=== PATIENT | female | born 1930 | race Caucasian/White ===

== ENCOUNTER 2017-02-24 13:34 | Inpatient (IN) ==
[2017-02-24] MEDS ORDERED: PANTOPRAZOLE 40 MG VIAL IV STA (13:59)
[2017-02-24] MEDS ORDERED: ONDANSETRON 4 MG/2 ML VIAL IV STA (13:59)
[2017-02-24] MEDS ORDERED: SODIUM CHLORIDE 0.9% 500 ML IV STA (13:59)
--- NOTE | 2017-02-24 14:03 | Emergency Department Note ---
Adam Edwards Rolonda, am scribing for, and in the presence of, Arben Campbell MD 13: 59. Shannan Edwards James D, MD, personally performed the services described in this documentation, ascribed by Melba Medina in my presence, and it is both accurate and complete 402 . Arrival - Arrival Chief Complaint: GI Bleed/Rectal ED Nursing Triage Note: pt has a lower gi bleed. dark red in color Mode of Arrival: Stretcher Limitations: No Limitations Source: Patient, Family (niece), Old Records Reviewed, RN Notes Reviewed - History of Present Illness HPI Narrative: Pt is an 87 y/o female who presents to the ED via EMS with c/o lower GI bleed with an onset of hours. Pt has a PMHx of HTN. She states that she feels "really sick", had weakness and could not move. 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 Pt denies having abdomen pain and vomiting but confirms nausea and that she is on blood thinners. PT states that she has had a little amount of blood in the stool. No other complaint/pain in ED. Onset (ago): hour(s) Consistency: constant Severity: moderate Severity scale (1-10): 4 Allergies/Adverse Reactions: Allergies Allergy/AdvReac Type Severity Reaction Status Date / Time No Known Allergies Allergy Verified 09/25/16 12:32 Home Medications: Home Medications Medication Instructions Recorded Confirmed Type Aspirin EC Tab 81 mg PO BEDTIME 09/26/16 02/24/17 History Benzonatate 100 mg PO TID PRN 09/26/16 02/24/17 History Butalbital/Acet/Caff 50-325-40 1 tablet PO Q4H PRN 09/26/16 02/24/17 History [Fioricet 50-325-40 mg Tablet] Gabapentin 100 mg PO TID 09/26/16 02/24/17 History Ipratropium/Albuterol Inhaler 1 puff INH QID 09/26/16 02/24/17 History [Combivent Respimat Inhaler] Isosorbide Mononitrate [Isosorbide 60 mg PO DAILY 09/26/16 02/24/17 History Mononitrate ER] Metoprolol Tartrate 12.5 mg PO BID 09/26/16 02/24/17 History Montelukast Tab [Singulair Tab] 10 mg PO BEDTIME 09/26/16 02/24/17 History [place]-3 Fatty Acids [Fish Oil] 300 mg PO DAILY 09/26/16 02/24/17 History Vit B Cmplx No3/FA/C/Biot/Zinc 1 each PO DAILY 09/26/16 02/24/17 History [Nephplex Rx Tablet] Colestipol [Colestid] 2 gm PO DAILY #30 tablet 10/01/16 02/24/17 Rx Nitroglycerin Sl Tab [Nitrostat] 0.4 mg SL Q5M PRN 02/24/17 02/24/17 History Potassium Chloride Cap/Tab [K Dur] 20 meq PO TID 02/24/17 02/24/17 History Pantoprazole Tab [Protonix Tab] 40 mg PO BID #30 tablet 02/27/17 02/24/17 Rx Warfarin Sodium [Jantoven] 5 mg PO DAILY #0 02/27/17 02/24/17 Rx Review of System - Review of System 12 point system: reviewed and no additional remarkable complaints except as stated - Review of System Constitutional: Present: weakness. Absent: chills Eyes: Absent: discharge Head/Ears/Nose/Throat: Absent: earache Respiratory: Absent: cough Cardiovascular: Absent: chest pain Gastrointestinal: Present: nausea. Absent: abdominal pain, vomiting Genitourinary female: Present: other (lower GI bleed; "dark red blood"). Absent : abnormal menses Musculoskeletal: Absent: arm pain Skin: Absent: rash Neurological: Absent: headache Psychiatric: Absent: anxiety Endocrine: Absent: cold intolerance Hematological/Lymphatic: Absent: easy bleeding Allergic/Immunologic: Absent: facial swelling Medical,Surgical,& Family Hx - Medical History Cardio: History of: Cardiac Dysrhythmia (Long-standing atrial fibrillation approximately 8 years), CHF (Preserved ejection fraction and probable diastolic dysfunction), Hypertension No history of: MT, Pacemaker, PVD Psychological: No history of: Anxiety Disorders, ADHD, Behavior Problems, Bipolar Disorder, Depression, Previous Suicide Attempt, Psychiatric/Substance Abuse Tx, Schizophrenia, Violent Behavior, Psychiatric Problems Neurology: No history of: Seizures, TIA Respiratory: History of: COPD No history of: Obstructive Sleep Apnea Renal: No history of: Renal Failure Gastrointestinal: History of: GERD Hematology: No history of: Anemia - Surgical History Cardiac Surgeries: Sugical HX of: Cardiac Catheterization Thoracic Surgeries: Patient denies;: Organ Transplant, Lobectomy Neurologic Surgeries: Patient denies: Neurologic Surgery Abdominal Surgeries: Surgical HX of: Abdominal Surgery, Appendectomy, Cholecystectomy Reproductive Surgeries: Surgical HX of;: Hysterectomy Patient denies;: Gynecologic Surgery - Family History Family History: Reports;: Family Heart Disease - Social History Smoking Status: Never smoker Frequency of Alcohol Use: None Type of Drug Use: None Exam Vital Signs: Vital Signs Temperature 98.4 F 02/27/17 04:00 Pulse Rate 84 02/27/17 07:35 Respiratory Rate 16 02/27/17 07:35 Blood Pressure 143/67 02/27/17 04:00 O2 Sat by Pulse Oximetry 99 02/27/17 07:35 GENERAL: This is a chronically ill-appearing pale white female in no apparent distress. VITAL SIGNS: Reviewed HEENT: Head is atraumatic and normocephalic. Pupils are equal round react to light. Extraocular movements are intact. Oropharynx is benign with moist mucous membranes. NECK: Neck is soft and supple without tenderness. There are no masses. There is no lymphadenopathy. LUNGS: Lungs are clear to auscultation. Chest rises symmetrically. There is no chest wall tenderness. CV: Irregularly irregular without murmurs rubs or gallops. ABDOMEN: Abdomen is soft, nontender to palpation. There are no abdominal abnormal masses palpated. There is no organomegaly. Bowel sounds are present and active. SKIN: Skin is warm and dry. No rash. EXTREMITIES: Patient has full range of motion without tenderness. There is no pedal edema. NEUROLOGIC: Awake alert and oriented 4. Cranial nerves II through XII are grossly intact. Motor is 5 over 5 in all extremities bilaterally. Results - Labs CBC & BMP: 02/27/17 05:18 02/26/17 07:37 Lab Results: I have reviewed the patients labs Labs: Laboratory Tests 02/24/17 02/24/17 02/24/17 14:48 14:48 14:48 WBC 7.2 Hgb 10.6 L Hct 32.1 L Plt Count 117 L INR 1.6 Sodium 142 Potassium 4.9 Chloride 109 H Carbon Dioxide 26 Anion Gap 11.9 BUN 44 H Creatinine 0.90 Glucose 95 Only the labs of 02/24/2017 are to be considered for the purposes of this note. Labs from any other date have been entered automatically by the electronic medical record. Disposition Clinical Impression: Acute GI bleeding Case discussed with: patient, patient's family Disposition: Still a Patient New Prescriptions: Rx's Medication Instructions Recorded Pantoprazole Tab [Protonix Tab] 40 mg PO BID #30 tablet 02/27/17 Warfarin Sodium [Jantoven] 5 mg PO DAILY #0 02/27/17
--- NOTE | 2017-02-24 14:28 | EKG Report ---
Stationary ECG Study [facility] ER Test Date: 02/24/2017 2:26:52 PM Pat Name: LISHA WILLIAMSON Department: Room: Gender: F [employer] Supervisor: : 1930 Requested by: Arben Lam Order Number: [id number] Reading MD: GANESH TOMLIN Intervals [place] Rate: 84 P: 999 AK: 0 QRS: -5 QRSD: 84 T: -4 QT: 362 QTc: 403 Interpretive Statements ATRIAL FIBRILLATION VOLTAGE CRITERIA FOR LVH INFERIOR MYOCARDIAL INFARCTION, PROBABLY OLD Electronically Signed On 02-24-17 15:54:07 CDT by GANESH TOMLIN [email or web address]
[2017-02-24] MEDS ORDERED: PANTOPRAZOLE 40 MG VIAL IV ONE (14:39)
[2017-02-24] MEDS ORDERED: ONDANSETRON 4 MG/2 ML VIAL ONE (14:40)
[2017-02-24 15:08] LABS: Basophils % 0.1 % (0.0-0.8); Eosinophils % 0.6 % (0.00-10.9); Hematocrit 32.1 VOL% (35.7-47.0); Hemoglobin 10.6 GM/DL (12.0-16.0); Immature Granulocytes % 0.6 %; Immature Granulocytes Absolute 0.04 #; Lymphocytes # 1.1 10*3/uL (1.4-4.0); Lymphocytes % 15.6 % (21.3-54.2); Mean Corpuscular Hemoglobin 34 PG (27-34); Mean Corpuscular Volume 102.2 FL (87-102); Mean Platelet Volume 13.8 FL (9.6-12.0); Monocytes # 0.4 10*3/uL (0.11-0.8); Neutrophils # 5.5 10*3/uL (1.4-7.4); Neutrophils % 77.1 % (38.7-73.9); Platelet Count 117 T/CUMM (130-400); Red Blood Count 3.14 MC/CUMM (3.8-5.5); Red Cell Distribution Width 14.5 % (9.3-17.3); White Blood Count 7.2 T/CUMM (4-12)
[2017-02-24 15:13] LABS: INR 1.6; PT Patient Result 17.8 SECS; Partial Thromboplastin Time 29.2 SECS (0-40)
[2017-02-24 15:30] LABS: Albumin 3.4 G/DL (3.4-5.0); Bilirubin,Total 0.4 MG/DL (0.2-1.0); Calcium 9.9 MG/DL (8.5-10.1); Osmolality,Calculated 293.1 MOS/KG (273-304); Potassium 4.9 MMOL/L (3.5-5.1); Total Protein 6.1 G/DL (6.4-8.3)
--- NOTE | 2017-02-24 16:21 | Hospitalist History & Physical ---
<Maddie Honeycutt - Last Filed: 02/24/17 16:12> Assessment and Plan - Time spent with patient Time spent with patient: Greater than 30 minutes (1) Acute GI bleeding Status: Acute Assessment and plan: Patient reports dark red stool this a.m. Admit to Hospital Services. Start IV fluids. Repeat labs in a.m. Consult GI. Will discuss with Dr Selby for further recommendations. Current Visit: Yes (2) Chronic atrial fibrillation Status: Chronic Assessment and plan: Will continue to monitor INR and PT. Patient is currently on Coumadin for chronic AFib. Current Visit: No History of Present Illness Chief complaint: GI bleed History of present illness: Ms. Mayfield is a 87 year old white female with PMHx of AFib; CHF; Hypertension; COPD; presents to the ED via EMS for further evaluation of 2 very dark loose bowel movements this a.m. She reported some nausea and feeling "really weak" with a near syncope episode. She reports taking coumadin for chronic AFib. Patient denies shortness of breath, dizziness, fever, chills, vomiting. In the ED: EKG Atrial fibrillation with rate 84 irregular. LABS: H &H 10.6 & 32.1; INR 1.6; PT 17.8; PTT 29.2; Electrolytes within normal range; BUN 44; creatinine 0.90. Cardiology: Dr Lozano Pulmonary: Dr Cano GI: Dr Lamar After discussion with Dr Campbell in the ED and Dr Selby with Hospital Services, it was agreed to admit patient for observation and further evaluation. Home medications will be reviewed and reconciliation to follow. Home Medications Medication Instructions Recorded Confirmed Type Aspirin EC Tab 81 mg PO BEDTIME 09/26/16 09/26/16 History Benzonatate 100 mg PO TID 09/26/16 09/26/16 History Butalbital/Acet/Caff 50-325-40 1 tablet PO Q4H PRN 09/26/16 09/26/16 History [Fioricet 50-325-40 mg Tablet] Gabapentin 100 mg PO TID 09/26/16 09/26/16 History Ipratropium/Albuterol Inhaler 1 puff INH QID 09/26/16 09/26/16 History [Combivent Respimat Inhaler] Isosorbide Mononitrate [Isosorbide 60 mg PO DAILY 09/26/16 09/26/16 History Mononitrate ER] Metoprolol Tartrate 12.5 mg PO BID 09/26/16 09/26/16 History Montelukast Tab [Singulair Tab] 10 mg PO BEDTIME 09/26/16 09/26/16 History [place]-3 Fatty Acids [Fish Oil] 300 mg PO DAILY 09/26/16 09/26/16 History Vit B Cmplx No3/FA/C/Biot/Zinc 1 each PO DAILY 09/26/16 09/26/16 History [Nephplex Rx Tablet] Colestipol [Colestid] 2 gm PO DAILY #30 tablet 10/01/16 Rx Pantoprazole Tab [Protonix Tab] 40 mg PO DAILY #30 tablet 10/01/16 Rx Potassium Chloride Cap/Tab [K Dur] 20 meq PO DAILY #30 tablet 10/01/16 Rx Warfarin Sodium [Jantoven] 5 mg PO DAILY #30 tablet 10/01/16 Rx cephALEXin [Keflex] 500 mg PO Q8H #21 capsule 10/01/16 Rx Allergies Allergy/AdvReac Type Severity Reaction Status Date / Time No Known Allergies Allergy Verified 09/25/16 12:32 Medical,Surgical,& Family Hx - Medical History Cardio: History of: Cardiac Dysrhythmia (Long-standing atrial fibrillation approximately 8 years), CHF (Preserved ejection fraction and probable diastolic dysfunction), Hypertension No history of: [place], Pacemaker, PVD Psychological: No history of: Anxiety Disorders, ADHD, Behavior Problems, Bipolar Disorder, Depression, Previous Suicide Attempt, Psychiatric/Substance Abuse Tx, Schizophrenia, Violent Behavior, Psychiatric Problems Neurology: No history of: Seizures, TIA Respiratory: History of: COPD No history of: Obstructive Sleep Apnea Renal: No history of: Renal Failure Gastrointestinal: History of: GERD Hematology: No history of: Anemia - Surgical History Cardiac Surgeries: Sugical HX of: Cardiac Catheterization Thoracic Surgeries: Patient denies;: Organ Transplant, Lobectomy Neurologic Surgeries: Patient denies: Neurologic Surgery Abdominal Surgeries: Surgical HX of: Abdominal Surgery, Appendectomy, Cholecystectomy Reproductive Surgeries: Surgical HX of;: Hysterectomy Patient denies;: Gynecologic Surgery - Family History Family History: Reports;: Family Heart Disease - Social History Smoking Status: Never smoker Frequency of Alcohol Use: None Type of Drug Use: None Lives With:: grandson lives with her Functional capacity: uses cane/walker Review of systems: ROS completed and pertinent positives and negatives in the HPI. Exam - Constitutional Vitals: Period Temp Pulse Resp BP Sys/Sánchez Pulse Ox Last 24 Hr 97.1 F-97.1 F 94-94 18-18 145-145/72-72 96-96 General appearance: normal weight - Head Head exam: Present: normal inspection - Eye Eye exam: Present: EOMI Pupils: Present: JIM - Neck Neck exam: Present: normal inspection. Absent: thyromegaly - Respiratory Respiratory exam: Present: clear to auscultation bilaterally. Absent: rhonchi, stridor, wheezes - Cardiovascular Cardiovascular exam: Present: irregular rhythm (chronic Afib) - GI/Abdominal GI/Abdominal exam: Present: normal bowel sounds, soft. Absent: tenderness, rebound - Extremities Exam Extremities exam: Present: normal inspection, full ROM. Absent: edema - Neurological Exam Neurological exam: Present: alert, oriented X3 - Psychiatric Psychiatric exam: Present: normal affect, normal mood. Absent: agitated, anxious - Skin Skin exam: Present: normal color, warm, dry Results - Labs CBC & BMP: 02/24/17 14:48 02/24/17 14:48 Lab Results: I have reviewed the past 24 hour labs - EKG EKG results: interpreted by CARL[place] <Jennifer Selby - Last Filed: 02/24/17 17:33> History of Present Illness History of present illness: Patient seen and examined independently of BINDERY WORKER Honeycutt, agree with history, assessment and plan as documented. 87 y/o WF on coumadin for afib presents s/p syncopal episode with associated bloody diarrhea. Her seo executive reports that this has never occurred before. Will admit to the ICU for today for close monitoring. She is currently hemodynamically stable. Monitor H/H, IV protonix. Will consult Dr. Lamar. Exam - Constitutional Vitals: Period Temp Pulse Resp BP Sys/Sánchez Pulse Ox Last 24 Hr 97.1 F-97.1 F 94-94 18-18 145-145/72-72 96-96 Results - Labs CBC & BMP: 02/24/17 14:48 02/24/17 14:48
[2017-02-24 16:29] LABS: Macrocytosis Slight; Platelet Estimate Decreased
[2017-02-24] MEDS: SODIUM CHLORIDE 0.9% 1,000 ML IV SCH (18:36)
[2017-02-24 18:46] LABS: Hematocrit 28.3 VOL% (35.7-47.0); Hemoglobin 9.3 GM/DL (12.0-16.0)
[2017-02-24] MEDS: BUTALBITAL/ACETAMIN/CAFFEINE 50-325-40 MG TABLET PO PRN (20:36)
[2017-02-24] MEDS: ALBUTEROL/IPRATROPIUM 3 ML NEB RESP TX SCH (21:20)
[2017-02-25 01:56] LABS: INR 1.9; PT Patient Result 20.7 SECS
[2017-02-25] MEDS: SODIUM CHLORIDE 0.9% 1,000 ML IV SCH ×2 (02:16→09:07)
[2017-02-25 02:24] LABS: Basophils % 0.3 % (0.0-0.8); Eosinophils # 0.1 10*3/uL (0.0-0.87); Eosinophils % 1.1 % (0.00-10.9); Hematocrit 26.1 VOL% (35.7-47.0); Hemoglobin 8.5 GM/DL (12.0-16.0); Immature Granulocytes % 0.4 %; Immature Granulocytes Absolute 0.03 #; Lymphocytes # 1.8 10*3/uL (1.4-4.0); Lymphocytes % 25.3 % (21.3-54.2); Mean Corpuscular HGB Conc 32.6 GM/DL (32-36); Mean Corpuscular Hemoglobin 34 PG (27-34); Mean Corpuscular Volume 103.6 FL (87-102); Mean Platelet Volume 13.4 FL (9.6-12.0); Monocytes # 0.6 10*3/uL (0.11-0.8); Neutrophils # 4.5 10*3/uL (1.4-7.4); Neutrophils % 63.9 % (38.7-73.9); Platelet Count 95 T/CUMM (130-400); Red Blood Count 2.52 MC/CUMM (3.8-5.5); Red Cell Distribution Width 14.3 % (9.3-17.3)
[2017-02-25 04:13] LABS: Band Neutrophils 5 % (0-10); Eosinophils 1 % (0-10); Lymphocytes 24 % (20-55); Metamyelocytes 1 %; Myelocytes 3 %; Segmented Neutrophils 66 % (50-85); Total Cells Counted 100
[2017-02-25 04:14] LABS: Anisocytosis 1+; Platelet Estimate Decreased; Tear Drop Cells Few
[2017-02-25] MEDS: ALBUTEROL/IPRATROPIUM 3 ML NEB RESP TX SCH ×4 (07:00→19:07)
--- NOTE | 2017-02-25 08:58 | Gastrointestinal Consult Note ---
Assessment and Plan (1) Acute GI bleeding Status: Acute Assessment and plan: The patient has maroon stools which could indicate lower GI bleeding versus upper GI bleeding, we will plan on looking in the upper GI tract as I did not see any source for bleeding during her last colonoscopy done back in September 2016. We will be checking a tagged red blood cell scan to see if she is actively bleeding and if this is a colonic source will cancel upper endoscopy. If the bleeding scan is negative for proceed with upper endoscopy to look for potential upper GI source given the patient's aspirin intake. She is also on Coumadin and I am going to partially reverse this and hopefully this will hold the continued decrease in blood counts. She is parameters written to transfuse at or below 24%. I suspect she will need a transfusion while she is here. It is appropriate to watch her in the CCU. Clear liquid diet today in case she becomes very hypotensive. Current Visit: Yes (2) Anemia, posthemorrhagic, acute Status: Acute Assessment and plan: Continue following patient's hematocrit. Current Visit: No (3) Personal history of colonic polyps Status: Acute Assessment and plan: Repeat colonoscopy in 3 years. If the patient is having a diverticular bleed as seen on tagged red blood cell scan we will likely simply observe after correcting her vitamin K deficiency. We know that she does not have cancer. Current Visit: Yes History of Present Illness Chief complaint: Maroon stools, with hematocrit dropped from 32.1% to 26.1% History of present illness: Ms. Mayfield is a 87 year old female who is well-known to me from her previous hospitalization when she was noted to have an abnormal weight loss some 40 pounds change in bowel habits with diarrhea 10-20 times per day. Colonoscopy took place at that time on 09/25/16 which demonstrated no evidence of Crohn's disease would precipitate, collagenous colitis, ischemic changes malignancy but did show a superficial chronic inflammation most consistent with self-limited colitis. 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 The patient was in a state of usual health up until this morning when she presented with some dark red stools. All medications to include aspirin as well as warfarin and the patient does take pantoprazole. Given these dark stools and a decrease in her hematocrit from 32% to 26% on warfarin (for long-standing atrial fibrillation with preserved ejection fraction) we will obtain a bleeding scan to look for immediate blood loss amenable to arteriography and embolization as well as performing upper endoscopy tomorrow morning to look for a acute ulcer perhaps caused by the aspirin that she is on. She is not complaining of abdominal pain she would like to leave the hospital right now. She has had some nausea, but really has no abdominal pain, her diarrhea had gone away in the interim and her weight has stabilized. Home Medications Medication Instructions Recorded Confirmed Type Aspirin EC Tab 81 mg PO BEDTIME 09/26/16 02/24/17 History Benzonatate 100 mg PO TID PRN 09/26/16 02/24/17 History Butalbital/Acet/Caff 50-325-40 1 tablet PO Q4H PRN 09/26/16 02/24/17 History [Fioricet 50-325-40 mg Tablet] Gabapentin 100 mg PO TID 09/26/16 02/24/17 History Ipratropium/Albuterol Inhaler 1 puff INH QID 09/26/16 02/24/17 History [Combivent Respimat Inhaler] Isosorbide Mononitrate [Isosorbide 60 mg PO DAILY 09/26/16 02/24/17 History Mononitrate ER] Metoprolol Tartrate 12.5 mg PO BID 09/26/16 02/24/17 History Montelukast Tab [Singulair Tab] 10 mg PO BEDTIME 09/26/16 02/24/17 History [place]-3 Fatty Acids [Fish Oil] 300 mg PO DAILY 09/26/16 02/24/17 History Vit B Cmplx No3/FA/C/Biot/Zinc 1 each PO DAILY 09/26/16 02/24/17 History [Nephplex Rx Tablet] Colestipol [Colestid] 2 gm PO DAILY #30 tablet 10/01/16 02/24/17 Rx Pantoprazole Tab [Protonix Tab] 40 mg PO DAILY #30 tablet 10/01/16 02/24/17 Rx Nitroglycerin Sl Tab [Nitrostat] 0.4 mg SL Q5M PRN 02/24/17 02/24/17 History Potassium Chloride Cap/Tab [K Dur] 20 meq PO TID 02/24/17 02/24/17 History Warfarin Sodium [Jantoven] 7.5 mg PO DAILY 02/24/17 02/24/17 History Allergies Allergy/AdvReac Type Severity Reaction Status Date / Time No Known Allergies Allergy Verified 09/25/16 12:32 Medical,Surgical,& Family Hx - Medical History Cardio: History of: Cardiac Dysrhythmia (Long-standing atrial fibrillation approximately 8 years), CHF (Preserved ejection fraction and probable diastolic dysfunction), Hypertension No history of: MD, Pacemaker, PVD Psychological: No history of: Anxiety Disorders, ADHD, Behavior Problems, Bipolar Disorder, Depression, Previous Suicide Attempt, Psychiatric/Substance Abuse Tx, Schizophrenia, Violent Behavior, Psychiatric Problems Neurology: No history of: Seizures, TIA Respiratory: History of: COPD No history of: Obstructive Sleep Apnea Renal: No history of: Renal Failure Gastrointestinal: History of: GERD Hematology: No history of: Anemia - Surgical History Cardiac Surgeries: Sugical HX of: Cardiac Catheterization Thoracic Surgeries: Patient denies;: Organ Transplant, Lobectomy Neurologic Surgeries: Patient denies: Neurologic Surgery Abdominal Surgeries: Surgical HX of: Abdominal Surgery, Appendectomy, Cholecystectomy Reproductive Surgeries: Surgical HX of;: Hysterectomy Patient denies;: Gynecologic Surgery - Family History Family History: Reports;: Family Heart Disease - Social History Smoking Status: Never smoker Frequency of Alcohol Use: None Type of Drug Use: None ROS unobtainable: due to dementia Exam - Constitutional Vitals: Period Temp Pulse Resp BP Sys/Sánchez Pulse Ox Last 24 Hr 97.1 F-97.5 F 72-110 13-21 86-195/46-118 90-100 Exam: Constitutional: Well-developed, well-nourished, alert but moderately demented, and in no acute distress Head and face: Head: Normocephalic atraumatic Eyes: Conjunctiva without injection, no gross scleral icterus, pupils equal and round bilaterally, bilateral ocular implants noted Ears: Intact to conversation in both ears Nose: External appearance is normal, nares patent Mouth: Oral mucous membranes moist without erythema, patient is edentulous Neck: Normal appearance, no masses or tenderness, trachea midline Thyroid: Gland midline and appropriate size for age Respiratory: Normal respiratory effort, clear to auscultation without wheezes, rhonchi or rales Cardiovascular: Regular rate and rhythm, normal S1, S2, the exam is without rubs, murmurs or gallops. Gastrointestinal: Nontender to palpation, normal active bowel sounds, tone normal without rigidity or guarding, no masses present, no hepatomegaly, no spleen tip felt. Rectal exam shows maroon stools, decreased tone Lymphatic: Neck without adenopathy, axilla without lymphadenopathy present Musculoskeletal: Right and left lower extremities without evidence of edema Skin and subcutaneous tissue: No rashes or ulcerations noted, normal skin turgor, digits and nails without clubbing/cyanosis/deformities. Neurologic: The patient is grossly oriented to person place and time, cranial nerves show tongue movements are normal with normal tongue extrusion midline, light touch sensation is intact. Psychiatric: No hallucinations or delusions are present, does not appear depressed, moderately demented Results - Labs CBC & BMP: 02/25/17 02:18 02/24/17 14:48
[2017-02-25] MEDS ORDERED: PANTOPRAZOLE 40 MG VIAL IV SCH (09:00)
[2017-02-25] MEDS ORDERED: PHYTONADIONE 10 MG/1 ML AMP SUBCUT ONE (09:07)
[2017-02-25] MEDS: PANTOPRAZOLE 40 MG VIAL IV SCH ×2 (09:07→20:30)
[2017-02-25] MEDS ORDERED: FUROSEMIDE 20 MG/2 ML VIAL IV PRN (09:09)
[2017-02-25] MEDS ORDERED: SODIUM CHLORIDE 0.9% 250 ML IV PRN ×2 (09:09→19:12)
[2017-02-25 09:15] LABS: Hematocrit 26.5 VOL% (35.7-47.0); Hemoglobin 8.7 GM/DL (12.0-16.0)
[2017-02-25] MEDS: ISOSORBIDE MONONITRATE 60 MG TABLET PO SCH (11:36)
[2017-02-25] MEDS: METOPROLOL TARTRATE 25 MG TABLET PO SCH ×2 (11:37→20:29)
--- NOTE | 2017-02-25 11:38 | Nuclear Medicine Report ---
Nuclear medicine, GI bleeding study. Indication: Anemia, bloody stools. Following the intravenous administration of 20 mCi technetium 99m PYP labeled blood cells, imaging was performed over the abdomen in the blood flow stage with delayed imaging performed over the abdomen for a time frame of one hour. Normal physiologic activity. No findings to suggest active GI bleeding. PROCEDURE INTERPRETED AT [facility] DEPARTMENT OF RADIOLOGY Final Report Signed by: Dr. Marija Umana
[2017-02-25] MEDS: BUTALBITAL/ACETAMIN/CAFFEINE 50-325-40 MG TABLET PO PRN ×2 (11:47→18:38)
[2017-02-25 12:29] LABS: Hematocrit 25.7 VOL% (35.7-47.0); Hemoglobin 8.4 GM/DL (12.0-16.0)
--- NOTE | 2017-02-25 13:38 | Hospitalist Progress Note ---
Assessment and Plan (1) Acute GI bleeding Status: Acute Assessment and plan: 1)acute GI bleed- bleeding scan showed nothing to suggest GI bleeding at this time. Anticipate EGD in am. monitor H&H. On IV protonix. 2)chronic afib- INR 1.9. vitamin K ordered by Dr Lamar, coumadin held. Rate ok on metoprolol. 3)transfer to floor. Current Visit: Yes (2) Chronic atrial fibrillation Status: Chronic Current Visit: No (3) GERD (gastroesophageal reflux disease) Status: Chronic Current Visit: No Qualifiers: Esophagitis presence: without esophagitis Qualified Code(s): K21.9 - Gastro -esophageal reflux disease without esophagitis (4) Chronic anticoagulation Status: Chronic Current Visit: No (5) Diarrhea Status: Acute Current Visit: No (6) Abnormal weight loss Status: Acute Current Visit: No Hospitalist: Subjective Interval history: Mrs Mayfield is doing well today. She denies pain or vomiting. No more BM or blood from rectum since yesterday morning. She is a little bit hungry. She had Cscope last Spring so Dr Lamar will begin with EGD tomorrow morning. Her BP has been stable overnight. Her hgb is down to 8 from 10.6 on admission. Bleeding scan this morning. Exam - Constitutional Vitals: Period Temp Pulse Resp BP Sys/Sánchez Pulse Ox Last 24 Hr 97.1 F-99.1 F 72-110 13-33 86-195/46-118 90-100 General appearance: no acute distress, over weight - Eye Eye exam: Present: EOMI. Absent: scleral icterus - Respiratory Respiratory exam: Present: clear to auscultation bilaterally - Cardiovascular Cardiovascular exam: Present: irregular rhythm - GI/Abdominal GI/Abdominal exam: Present: normal bowel sounds, soft. Absent: tenderness - Extremities Exam Extremities exam: Absent: edema - Neurological Exam Neurological exam: Present: alert, oriented X3 - Skin Skin exam: Present: warm, dry Results - Labs CBC & BMP: 02/25/17 11:50 02/24/17 14:48 Lab Results: I have reviewed the past 24 hour labs
[2017-02-25] MEDS: GABAPENTIN 100 MG CAPSULE PO SCH ×2 (15:40→20:30)
[2017-02-25 18:46] LABS: Hematocrit 22.5 VOL% (35.7-47.0); Hemoglobin 7.4 GM/DL (12.0-16.0)
[2017-02-25] MEDS ORDERED: FUROSEMIDE 20 MG/2 ML VIAL IV ONE (19:13)
[2017-02-25] MEDS: MONTELUKAST 10 MG TABLET PO SCH (20:30)
[2017-02-26] MEDS ORDERED: FUROSEMIDE 20 MG/2 ML VIAL IV ONE (01:50)
[2017-02-26] MEDS: BUTALBITAL/ACETAMIN/CAFFEINE 50-325-40 MG TABLET PO PRN ×3 (03:30→20:08)
[2017-02-26 06:17] LABS: Basophils % 0.5 % (0.0-0.8); Eosinophils # 0.2 10*3/uL (0.0-0.87); Eosinophils % 2.1 % (0.00-10.9); Hematocrit 35.4 VOL% (35.7-47.0); Immature Granulocytes % 0.7 %; Immature Granulocytes Absolute 0.06 #; Lymphocytes # 1.6 10*3/uL (1.4-4.0); Lymphocytes % 18.2 % (21.3-54.2); Mean Corpuscular HGB Conc 33.9 GM/DL (32-36); Mean Corpuscular Hemoglobin 33 PG (27-34); Mean Platelet Volume 13.6 FL (9.6-12.0); Monocytes # 0.7 10*3/uL (0.11-0.8); Monocytes % 7.7 % (1.7-12.7); Neutrophils # 6.1 10*3/uL (1.4-7.4); Neutrophils % 70.8 % (38.7-73.9); Platelet Count 107 T/CUMM (130-400); Red Blood Count 3.65 MC/CUMM (3.8-5.5); Red Cell Distribution Width 15.9 % (9.3-17.3); White Blood Count 8.6 T/CUMM (4-12)
[2017-02-26 06:43] LABS: INR 3.3
[2017-02-26 06:54] LABS: PT Patient Result 38.1 SECS
[2017-02-26] MEDS: ALBUTEROL/IPRATROPIUM 3 ML NEB RESP TX SCH ×4 (07:48→19:06)
[2017-02-26 08:48] LABS: Calcium 10.8 MG/DL (8.5-10.1); Osmolality,Calculated 283.4 MOS/KG (273-304); Potassium 3.5 MMOL/L (3.5-5.1)
--- NOTE | 2017-02-26 09:12 | Operative Note ---
Pre-op diagnosis: Upper GI bleeding, decreased hematocrit to 22.5%, melena Post-op diagnosis: other (Gastric ulcer noted 1 cm, this will require repeat upper endoscopy in 8 weeks to confirm healing. A 3 cm hiatal hernia was otherwise noted but there was no blood in the stomach and this was otherwise normal EGD with mild gastritis.) Procedure: PROCEDURE: Esophagogastroduodenoscopy (EGD) with cold biopsy for pathology REFERRING PHYSICIAN: Ernie Tom MD INDICATIONS: This patient has a history of upper GI bleeding on Coumadin currently with INR of 3.3 despite vitamin K given yesterday. We will give full dose vitamin K at this point. The prior H&P was reviewed and interrim changes are as noted: No change from GI consultation yesterday ENDOSCOPIST: Joe Lamar MD ENDOSCOPE: Olympus Video 100 System upper endoscope ASA CLASS: 3 EXAM: CV: regular rate and rhythm respiratory: Clear without wheezes abdominal: active bowel sounds MEDICATION: Per nursing anesthesia protocol, see their notes PROCEDURE: After discussion of the potential risks and benefits of upper endoscopy, the informed consent was obtained. The patient was then placed in the left lateral decubitus position where sedation was achieved as noted above. Esophageal intubation was performed without difficulty, and the endoscope was advanced through the esophagus, stomach and duodenum. A slow withdrawal was then performed with retroflexion in the stomach for careful inspection of the incisura angularis, fundus and cardia. The scope was then returned to a neutral position and withdrawn through the esophagus. The patient tolerated the procedure well and without complication. BIOPSIES: Gastric antrum/body 2 bites PHOTOGRAPHS: Obtained FINDINGS: Hypopharynx and Larynx: Normal Esohagoscopy Upper and middle thirds: External compression noted in the midesophagus but otherwise normal Lower third normal Esophogastric junctions: No gross evidence of esophagitis or Lopez's or stricturing Gastroscopy: Cardia/Fundus: 3 cm hiatal hernia noted Body: Mild diffuse gastritis, single biopsy 1 taken. Antrum and pylorus mild diffuse gastritis with a 1 cm ulcer noted in the antrum, this was not bleeding, alvarez-white base noted without visible vessel or pigmented spot. This is a low risk for rebleeding. Ulcer margin biopsy Duodenoscopy: Bulb normal Second and third portions: Normal IMPRESSION: Gastric ulcer noted 1 cm, this will require repeat upper endoscopy in 8 weeks to confirm healing. A 3 cm hiatal hernia was otherwise noted but there was no blood in the stomach and this was otherwise normal EGD with mild gastritis. RECOMMENDATIONS: Follow up for biopsy results in 1-2 weeks by phone [phone] Continue anti-gastroesophageal reflux measures (avoid carbonated and acidic beverages, avoid eating within 2 hours of bedtime, avoid tight fitting clothing , and elevate the front bed posts 6 inches prior to sleeping. Protonix 40 mg p.o. twice daily for the next 2 months If the patient is stable could be discharged tomorrow Vitamin K 5 mg p.o. 1 now Suggest decreasing Coumadin dosage since even after vitamin K given yesterday she is up to 3.3 INR today She will need repeat EGD in 2 months to confirm healing of ulcer. Joe Lamar MD COPY TO: Ernie Tom MD Anesthesia: MAC Surgeon / Physician: Joe Lamar Estimated blood loss: minimal Specimens: other (Gastric antrum/body) Condition: stable Disposition: post procedure unit ([facility] Suite) Results - Labs CBC & BMP: 02/26/17 05:57 02/26/17 07:37 Discharge Plan - Discharge Medications No Action Ipratropium/Albuterol Inhaler [Combivent Respimat Inhaler] 1 puff INH QID Vit B Cmplx No3/FA/C/Biot/Zinc [Nephplex Rx Tablet] 1 each PO DAILY Gabapentin 100 mg PO TID Benzonatate 100 mg PO TID PRN PRN Reason: Cough Butalbital/Acet/Caff 50-325-40 [Fioricet 50-325-40 mg Tablet] 1 tablet PO Q4H PRN PRN Reason: headaches Montelukast Tab [Singulair Tab] 10 mg PO BEDTIME Isosorbide Mononitrate [Isosorbide Mononitrate ER] 60 mg PO DAILY Aspirin EC Tab 81 mg PO BEDTIME [place]-3 Fatty Acids [Fish Oil] 300 mg PO DAILY Potassium Chloride Cap/Tab [K Dur] 20 meq PO TID Warfarin Sodium [Jantoven] 7.5 mg PO DAILY Metoprolol Tartrate 12.5 mg PO BID Colestipol [Colestid] 2 gm PO DAILY #30 tablet Pantoprazole Tab [Protonix Tab] 40 mg PO DAILY #30 tablet Nitroglycerin Sl Tab [Nitrostat] 0.4 mg SL Q5M PRN PRN Reason: Chest Pain - Follow Up or Referral - Forms/Instructions
--- NOTE | 2017-02-26 09:17 | Gastrointestinal Progress Note ---
Assessment and Plan (1) Gastric ulcer Status: Acute Assessment and plan: This appears to be the source the patient's bleeding, biopsies were taken (only 2 because Coumadin level with an INR of 3.3.) This patient will need a repeat upper endoscopy in 8 weeks. If she does well with solid diet she could likely be released later tomorrow. We will be giving another 5 mg of vitamin K today. I think a serious consideration should be given to decreasing the patient's Coumadin dose. Current Visit: Yes (2) Acute GI bleeding Status: Acute Assessment and plan: The patient has maroon stools which could indicate lower GI bleeding versus upper GI bleeding, we will plan on looking in the upper GI tract as I did not see any source for bleeding during her last colonoscopy done back in September 2016. We will be checking a tagged red blood cell scan to see if she is actively bleeding and if this is a colonic source will cancel upper endoscopy. If the bleeding scan is negative for proceed with upper endoscopy to look for potential upper GI source given the patient's aspirin intake. She is also on Coumadin and I am going to partially reverse this and hopefully this will hold the continued decrease in blood counts. She is parameters written to transfuse at or below 24%. I suspect she will need a transfusion while she is here. It is appropriate to watch her in the CCU. Clear liquid diet today in case she becomes very hypotensive. 02/26/17--patient appears to be doing better this morning. She is not hungry. No active bleeding seen on yesterday's GI tagged red blood cell scan. Gastric ulcer discovered today as noted above. Biopsies are pending to look for Helicobacter pylori that this may be NSAID induced with the patient's aspirin intake or surreptitious use of NSAIDs. Hematocrit is increased back up to 35% posttransfusion. Current Visit: Yes (3) Anemia, posthemorrhagic, acute Status: Acute Assessment and plan: Continue following patient's hematocrit. Hematocrit improvement from 22.5% all the way up to 35% post 2 units. Current Visit: No (4) Personal history of colonic polyps Status: Acute Assessment and plan: Repeat colonoscopy in 3 years. If the patient is having a diverticular bleed as seen on tagged red blood cell scan we will likely simply observe after correcting her vitamin K deficiency. We know that she does not have cancer. 02/26/17--no need to check lower GI tract as the tagged red blood cell scan was negative and the patient did have findings of a gastric ulcer in the upper endoscopy done today. We will continue her on Protonix twice daily make sure that she can tolerate a solid diet and likely discharged below once we see that she has no continued bleeding. Her INR has increased up to 3.3 even after being given vitamin K yesterday. We may want to adjust her Coumadin dose as a result, or leave her off this medication if not absolutely crucial to continue at least for the next month. Current Visit: Yes Gastroenterology - PN: Subj Interval history: No new complaints, the patient is not particularly hungry. Exam (Progress Note) - Constitutional Vitals: Period Temp Pulse Resp BP Sys/Sánchez Pulse Ox Last 24 Hr 97.4 F-99.1 F 77-105 14-24 115-194/66-95 92-100 General appearance: mild distress - Eye Eye exam: Present: EOMI - Respiratory Respiratory exam: Present: clear to auscultation bilaterally - GI/Abdominal GI/Abdominal exam: Present: normal bowel sounds, tenderness (Mild epigastric), soft. Absent: distended, guarding, rebound - Neurological Exam Neurological exam: Present: alert, altered (Mildly demented) - Psychiatric Psychiatric exam: Present: normal affect, normal mood - Skin Skin exam: Present: warm Results - Labs CBC & BMP: 02/26/17 05:57 02/26/17 07:37
--- NOTE | 2017-02-26 09:25 | Anesthesia Post-Op ---
Anesthesia Post OP - Post Ansesthetic Evaluation Patient seen in post op: Yes Resp: within normal limits CV: within normal limits Mental: within normal limits Temp: within normal limits [id number]: within normal limits Nausea and Vomiting: within normal limits Pain: within normal limits
[2017-02-26] MEDS ORDERED: PHYTONADIONE 5 MG TABLET PO ONE (10:00)
[2017-02-26 10:24] LABS: Hematocrit 31.2 VOL% (35.7-47.0); Hemoglobin 10.6 GM/DL (12.0-16.0)
[2017-02-26] MEDS: ISOSORBIDE MONONITRATE 60 MG TABLET PO SCH (10:42)
[2017-02-26] MEDS: GABAPENTIN 100 MG CAPSULE PO SCH ×3 (10:42→20:07)
[2017-02-26] MEDS: METOPROLOL TARTRATE 25 MG TABLET PO SCH ×2 (10:42→20:07)
[2017-02-26] MEDS: PANTOPRAZOLE 40 MG VIAL IV SCH ×2 (10:42→20:07)
--- NOTE | 2017-02-26 11:25 | Hospitalist Progress Note ---
Assessment and Plan (1) Acute GI bleeding Status: Acute Assessment and plan: Impression: 1. Acute GI bleed, likely due to gastric ulcer 2. Atrial fibrillation Plan: Follow serial hemoglobins. Discharge in the morning if she remains hemodynamically stable. Recheck pro time in the morning, and she will need to resume her warfarin at a lower dose. She can follow-up with cardiology regarding anticoagulation. This note was completed using [employer] voice recognition software. There may be spa director errors as a result. Current Visit: Yes Hospitalist: Subjective Interval history: Follow-up gastric ulcer and atrial fibrillation. The patient is status post EGD, and was found to have some gastric ulcers. These were biopsied. She will need to follow-up with GI in a few weeks to check pathology report, and she will also need acid suppression for the next 6- 8 weeks. Her INR is prolonged. She is on warfarin for atrial fibrillation and stroke prophylaxis. Daughter was questioning the need to continue warfarin, and we discussed this. Exam - Constitutional Vitals: Period Temp Pulse Resp BP Sys/Sánchez Pulse Ox Last 24 Hr 97.4 F-99.1 F 73-105 14-24 115-209/66-95 92-100 Vital signs are noted above. Heart is irregular with a soft systolic murmur. Chest is clear with no significant rales or wheezes. Abdomen is soft with no mass. She is awake and alert. Results - Labs CBC & BMP: 02/26/17 10:16 02/26/17 07:37 Lab Results: I have reviewed the past 24 hour labs
[2017-02-26] MEDS: MONTELUKAST 10 MG TABLET PO SCH (20:07)
[2017-02-27 05:33] LABS: Basophils % 0.4 % (0.0-0.8); Eosinophils # 0.2 10*3/uL (0.0-0.87); Eosinophils % 3.2 % (0.00-10.9); Hematocrit 31.3 VOL% (35.7-47.0); Hemoglobin 10.5 GM/DL (12.0-16.0); Immature Granulocytes % 0.6 %; Immature Granulocytes Absolute 0.03 #; Lymphocytes # 1.2 10*3/uL (1.4-4.0); Lymphocytes % 22.2 % (21.3-54.2); Mean Corpuscular HGB Conc 33.5 GM/DL (32-36); Mean Corpuscular Hemoglobin 33 PG (27-34); Mean Corpuscular Volume 96.9 FL (87-102); Monocytes # 0.5 10*3/uL (0.11-0.8); Monocytes % 9.7 % (1.7-12.7); Neutrophils # 3.4 10*3/uL (1.4-7.4); Neutrophils % 63.9 % (38.7-73.9); Platelet Count 109 T/CUMM (130-400); Red Blood Count 3.23 MC/CUMM (3.8-5.5); Red Cell Distribution Width 15.7 % (9.3-17.3); White Blood Count 5.3 T/CUMM (4-12)
[2017-02-27 05:52] LABS: INR 1.1; PT Patient Result 11.3 SECS
[2017-02-27 05:53] LABS: INR 1.1; PT Patient Result 11.2 SECS
[2017-02-27] MEDS: ALBUTEROL/IPRATROPIUM 3 ML NEB RESP TX SCH ×2 (07:25→11:04)
[2017-02-27] MEDS: METOPROLOL TARTRATE 25 MG TABLET PO SCH (09:57)
[2017-02-27] MEDS: PANTOPRAZOLE 40 MG VIAL IV SCH (09:57)
[2017-02-27] MEDS: ISOSORBIDE MONONITRATE 60 MG TABLET PO SCH (09:58)
[2017-02-27] MEDS: GABAPENTIN 100 MG CAPSULE PO SCH (09:58)
[2017-02-27] MEDS: BUTALBITAL/ACETAMIN/CAFFEINE 50-325-40 MG TABLET PO PRN (09:58)
--- NOTE | 2017-02-27 10:55 | Discharge Summary ---
Hospital Course - Hospital Course Hospital Course: Discharge diagnosis: 1. Upper GI bleed due to gastric ulcer 2. Atrial fibrillation The patient presented to the hospital with an upper GI bleed. She is on warfarin for chronic atrial fibrillation. Her warfarin was reversed with vitamin K. Upper endoscopy showed a gastric ulcer. This was biopsied. Pathology report is pending. Patient will follow up with GI regarding pathology report and a second endoscopy to document healing. She is now hemodynamically stable and ready for discharge. We will resume her warfarin at a lower dose, and she will have a repeat INR on 03/03. Medication reconciliation has been performed. Regular diet. Activity as tolerated. Follow-up with repeat INR as described above. This note was completed using [employer] voice recognition software. There may be net developer consultant errors as a result. Diagnosis - Discharge Diagnosis (1) Acute GI bleeding Status: Acute Discharge Plan - Discharge Data Disposition: Home Health Service Condition at Discharge: Stable Discharge Diet: advance to your usual diet Activity: resume usual activities as tolerated Hygiene: no restrictions - Discharge Medications Continue Ipratropium/Albuterol Inhaler [Combivent Respimat Inhaler] 1 puff INH QID Vit B Cmplx No3/FA/C/Biot/Zinc [Nephplex Rx Tablet] 1 each PO DAILY Gabapentin 100 mg PO TID Benzonatate 100 mg PO TID PRN PRN Reason: Cough Butalbital/Acet/Caff 50-325-40 [Fioricet 50-325-40 mg Tablet] 1 tablet PO Q4H PRN PRN Reason: headaches Montelukast Tab [Singulair Tab] 10 mg PO BEDTIME Isosorbide Mononitrate [Isosorbide Mononitrate ER] 60 mg PO DAILY Aspirin EC Tab 81 mg PO BEDTIME [place]-3 Fatty Acids [Fish Oil] 300 mg PO DAILY Potassium Chloride Cap/Tab [K Dur] 20 meq PO TID Metoprolol Tartrate 12.5 mg PO BID Colestipol [Colestid] 2 gm PO DAILY #30 tablet Nitroglycerin Sl Tab [Nitrostat] 0.4 mg SL Q5M PRN PRN Reason: Chest Pain Changed Warfarin Sodium [Jantoven] 5 mg PO DAILY #0 Pantoprazole Tab [Protonix Tab] 40 mg PO BID #30 tablet - Follow Up or Referral - Forms/Instructions Exam - Constitutional Vitals: Period Temp Pulse Resp BP Sys/Sánchez Pulse Ox Last 24 Hr 97.1 F-98.9 F 76-97 12-20 143-173/63-77 95-99 Vital signs are noted above. Heart is irregular with a soft systolic murmur. Lungs are clear with no rales or wheezes. She is awake and alert. Discharge Results Procedures and tests throughout hospitalization: Pending Orders 02/24/17 20:20 Occult Blood, Stool Routine Labs on day of discharge: Labs from last 24 hours 02/27/17 02/27/17 02/27/17 05:18 05:18 05:18 WBC 5.3 D RBC 3.23 L Hgb 10.5 L Hct 31.3 L MCV 96.9 MCH 33 MCHC 33.5 RDW 15.7 Plt Count 109 L MPV 13.0 H Neut % (Auto) 63.9 Lymph % (Auto) 22.2 [place] % (Auto) 9.7 Eos % (Auto) 3.2 Baso % (Auto) 0.4 Neut # (Auto) 3.4 Lymph # (Auto) 1.2 L [place] # (Auto) 0.5 Eos # (Auto) 0.2 Baso # (Auto) 0.0 Immature Gran % 0.6 Nucleated RBC % 0.0 Immature Gran # 0.03 Nucleated RBCs # 0.00 Immature Plt Fraction 0.0 INR 1.1 1.1 PT Patient/Control Mix 11.2 11.3 D DS: Provider Date of admission: 02/24/17 15:58 Primary care physician: Michael Green Attending physician on admission: Jennifer Selby MD Consults: 02/24/17 16:33 Consult to Physician [CONS] Routine Comment: gi bleed Consulting Provider: Joe Lamar Consult to Specialist Group: Gastroenterology Person Notified: Dr. Lamar Date Notified: 02/24/17 Time Notified: 18:30 Consult Notification Comment: Dr. Lamar in unit doing an EGD on another pt and was told when he came out of room very dark stools x2 this a.m. heme positive Last GI scope done September 2016 (last hospital admission) 02/25/17 08:55 Consult to Anesthesiology [CONS] Routine Consulting Provider: Reason for Anesthesiology: Pre-op Clearance Discharging clinician: Ernie Tom MD Expected date of discharge: 02/27/17
[2017-02-27 12:15] VITALS: BP 189/77
--- NOTE | 2017-02-27 14:21 | Pathology Report from [facility] ---
[facility] ACCESSION # : [id number] PATIENT NAME : Amrita Williamson ORDERING DR : Joe Lamar MD CLINICAL HX: GI bleed POST-OP DX: Gastric ulcer margins SPECIMEN INFO: Gastric ulcer margins GROSS DESCRIPTION: The specimen is received in formalin labeled AMRITA WILLIAMSON /GASTRIC consists of two pink-youssef mucosal tissue fragments measuring 0.4 x 0.3 cm together, submitted in one cassette. DIAGNOSIS FOR AMRITA WILLIAMSON: GASTRIC ULCER MARGINS BIOPSY: Regenerative mucosal changes, mild inflammation. H. pylori not seen on H&E and special stain with appropriate control. COLLECTED DATE: 02/26/2017 [facility] REPORT DATE: 02/27/2017 ELECTRONICALLY SIGNED BY: Leroy Elkins M.D. 02/27/2017 - 10:33:29 [facility]
--- NOTE | 2017-03-04 08:48 | Physician Query Form ---
CLICK EDIT DOCUMENT TO SELECT QUERY ANSWER --> OK --> SIGN Clarice Cherry RN Clinical [employer]end Plant Operator W) [phone] (f) [phone] [email or web address] PROVIDERS: Make your selection(s) from the choices in EACH section by typing an "x" and enter comments in the comment section. Please use your independent medical judgment in providing your response. This request does not imply that any particular answer is desired or expected. CLINICAL INDICATORS: (Providers should not edit this section) Based on documentation of History of "CHF" "Probable diastolic dysfunction" Please provide further specificity regarding CHF. ( ) Past Medical History of Systolic CHF ( x) Past Medical History of Diastolic CHF ( ) Other, please specify: ( ) Clinically unable to determine COMMENTS: PLEASE ALSO DOCUMENT RESPONSE IN PROGRESS NOTES AND/OR DISCHARGE SUMMARY Use of terms such as suspected, likely, or probable (associated with a specific diagnosis that is being evaluated, monitored, or treated as if it exists) are acceptable and can be restated in the discharge summary if not ruled out. [facility]
== END 2017-02-27 14:15 | disposition home health service (06) | DRG 384 ==
LOC: EDUNIT# → EDBD → N.ED 13:34 → N.EDINP 15:58 → SUATTDRO 15:58 → N.CC 17:46 → N.4E 02-25 17:20
PROVIDERS: ADMIT Internal Medicine; ATTEND Internal Medicine Geriatric Medicine